=== PATIENT | male | born 1960 | race Caucasian/White ===

== ENCOUNTER 2017-11-30 22:56 | Emergency (ER) | payer OTHER ==
[~2017-11-30] VITALS: Ht 185.4 cm; Wt 95.7 kg
[~2017-11-30 22:56] MED LIST: ASPI-667 PO; CAPE500T PO; CHOL500016 PO; CLOP75TA52 PO; FENO145T PO; GEMF600T3 PO; LACT1TAB PO; MELA5TAB17 PO; METO25TA4 PO; METO50TA4 PO; SERT50TA PO
[2017-11-30 23:05] VITALS: BP 133/66
--- NOTE | 2017-11-30 23:25 | ER.PDOC ---
General Chief Complaint: General Complaint Stated Complaint: URINARY RETENTION Time seen by MD: 23:21 Source: patient Exam Limitations: no limitations History of Present Illness Initial Comments Sanchez catheter not draining. No able to pass urine in urine bag for about 8 hours. Severity/Quality: moderate Associated Symptoms: Retention Sexual History: Non-contributory Allergies: Coded Allergies: No Known Allergies (Unverified , 11/13/16) Home Meds Reported Medications Metoprolol Tartrate 25MG (LOPRESSER 25MG) 25 Mg Tablet, 1 TAB PO BID, #180 TAB 1 Refill 11/21/17 Melatonin (MELATONIN) 5 Mg Tablet, 2 TAB PO HS, #30 TAB 11/21/17 Cholecalciferol (Vitamin D3) (VITAMIN D3) 5,000 Unit Tablet, 1 TAB PO DAILY, # 30 TAB 11/21/17 Sertraline Hcl (ZOLOFT) 50 Mg Tablet, 1 TAB PO DAILY, #30 TAB 2 Refills 11/21/17 Lactobacillus Acidophilus (Acidophilus) 1 Each Tablet, 1 EACH PO BID, TABLET 11/21/17 Gemfibrozil (GEMFIBROZIL) 600 Mg Tablet, 300 MG PO BID, TABLET 600MG TAKE 1/2 TAB 11/21/17 Capecitabine (XELODA) 500 Mg Tablet, 500 MG PO BID, #3 TABLET 11/21/17 Metoprolol Succinate (TOPROL XL) 50 Mg Tab.er.24h, 1 TAB PO DAILY, #30 TAB 4 Refills 11/16/16 Fenofibrate Nanocrystallized (TRICOR) 145 Mg Tablet, 1 TAB PO DAILY, #30 TAB 4 Refills 11/16/16 Clopidogrel Bisulfate (PLAVIX) 75 Mg Tablet, 1 TAB PO DAILY, #30 TAB 4 Refills 11/16/16 Aspirin (ASPIRIN) 81 Mg Tab.chew, 1 TAB PO DAILY, #30 TAB 4 Refills 11/16/16 Past Medical History Medical History: cancer, coronary artery disease, cardiac problems Surgical History: cardiac cath, colectomy Social History Smoking: greater than 1 pack/day Alcohol Use: none Drug Use: none Review of Systems Constitutional: no symptoms reported EENTM: no symptoms reported Respiratory: no symptoms reported Cardiovascular: no symptoms reported Gastrointestinal: no symptoms reported Genitourinary: see HPI All Other Systems: Reviewed and Negative Physical Exam General Appearance: No Apparent Distress, WD/WN Neck: nml inspection, non-tender Cardiovascular/Respiratory: Regular Rate, Rhythm, No M/R/G, Normal Peripheral Pulses, No JVD, Normal Breath Sounds, No Respiratory Distress Abdomen: Normal Bowel Sounds, Soft, No Organomegaly, No Pulsatile Mass, Tenderness (mild suprapubic discomfort) Back: nml inspection Extremities: Normal Range of Motion, Non-Tender, Normal Inspection, No Pedal Edema, No Calf Tenderness, Normal Capillary Refill Neurologic/Psychiatric: delivery agent II-XII NML as Tested, No Motor/Sensory Deficits, Alert, Normal Mood/Affect, Oriented x 3 Skin: Normal Color, Warm/Dry Lymphatic: No Adenopathy Progress Progress Sanchez catheter changed and urine draining nicely. Departure Time of Disposition: 23:24 Disposition: 01 HOME, SELF-CARE Impression: Primary Impression: Urine retention Condition: Improved Referrals: PCP,UNKNOWN (PCP) PRIMARY CARE PROVIDER Additional Instructions: F/U with Urologist next week as scheduled. Duration or Time Spent with Pa: 30 mins LUCIA LAUREANO MD Nov 30, 2017 23:25
[2017-11-30 23:45] VITALS: BP 133/66
== END 2017-11-30 23:35 | disposition home or self-care (01) ==
LOC: ER 22:56
DX: R33.9 Retention of urine, unspecified (principal); I25.10 Atherosclerotic heart disease of native coronary artery without angina pectoris; F17.210 Nicotine dependence, cigarettes, uncomplicated; Z79.82 Long term (current) use of aspirin; Z85.9 Personal history of malignant neoplasm, unspecified; Z95.818 Presence of other cardiac implants and grafts
CPT/HCPCS: 51702; 99284

== ENCOUNTER 2017-12-30 15:38 | Emergency (ER) | payer OTHER ==
[~2017-12-30] VITALS: Ht 185.4 cm; Wt 88.9 kg
[2017-12-30 16:14] VITALS: BP 144/70
--- NOTE | 2017-12-30 16:54 | ER.PDOC ---
General Chief Complaint: Male Stated Complaint: MALE , JIMENEZ PLACEMENT Time seen by MD: 18:00 Source: patient Exam Limitations: no limitations History of Present Illness Timing/Duration: just prior to arrival Severity/Quality: mild Location: suprapubic Associated Symptoms: Dysuria Sexual History: Non-contributory Prior symptoms/Treatment: Similar symptoms previous Allergies: Coded Allergies: No Known Allergies (Unverified , 11/13/16) Home Meds Reported Medications Metoprolol Tartrate 25MG (LOPRESSER 25MG) 25 Mg Tablet, 1 TAB PO BID, #180 TAB 1 Refill 11/21/17 Melatonin (MELATONIN) 5 Mg Tablet, 2 TAB PO HS, #30 TAB 11/21/17 Cholecalciferol (Vitamin D3) (VITAMIN D3) 5,000 Unit Tablet, 1 TAB PO DAILY, # 30 TAB 11/21/17 Sertraline Hcl (ZOLOFT) 50 Mg Tablet, 1 TAB PO DAILY, #30 TAB 2 Refills 11/21/17 Lactobacillus Acidophilus (Acidophilus) 1 Each Tablet, 1 EACH PO BID, TABLET 11/21/17 Gemfibrozil (GEMFIBROZIL) 600 Mg Tablet, 300 MG PO BID, TABLET 600MG TAKE 1/2 TAB 11/21/17 Capecitabine (XELODA) 500 Mg Tablet, 500 MG PO BID, #3 TABLET 11/21/17 Metoprolol Succinate (TOPROL XL) 50 Mg Tab.er.24h, 1 TAB PO DAILY, #30 TAB 4 Refills 11/16/16 Fenofibrate Nanocrystallized (TRICOR) 145 Mg Tablet, 1 TAB PO DAILY, #30 TAB 4 Refills 11/16/16 Clopidogrel Bisulfate (PLAVIX) 75 Mg Tablet, 1 TAB PO DAILY, #30 TAB 4 Refills 11/16/16 Aspirin (ASPIRIN) 81 Mg Tab.chew, 1 TAB PO DAILY, #30 TAB 4 Refills 11/16/16 Past Medical History Medical History: cancer, cardiac problems, heart attack Surgical History: cancer surgery, stent Social History Smoking: cigarettes, greater than 1 pack/day Alcohol Use: none Drug Use: none Reviewed Nursing Reviewed: Vital Signs, Abn. Noted Review of Systems All Other Systems: Reviewed and Negative Physical Exam General Appearance: No Apparent Distress, WD/WN EENT: eyes nml inspection, nml ENT inspection, pharynx nml Neck: nml inspection, non-tender Cardiovascular/Respiratory: Regular Rate, Rhythm, No M/R/G, Normal Peripheral Pulses, No JVD, Normal Breath Sounds, No Respiratory Distress Abdomen: Normal Bowel Sounds, Non Tender, Soft, No Organomegaly, No Pulsatile Mass Male Genitals: Normal Genitalia Back: nml inspection Extremities: Normal Range of Motion, Non-Tender, Normal Inspection, No Pedal Edema, No Calf Tenderness, Normal Capillary Refill Neurologic/Psychiatric: 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
--- NOTE | 2017-12-30 17:17 | NUR ---
[facility] CALLED PATIENT HOME [facility] FOR CATHETER SIZE.
--- NOTE | 2017-12-30 17:23 | NUR ---
[facility] STATES THAT PATIENT IS OUT OF THE [facility] OFFICE AND WILL CONTACT THEM PROMPTLY ABOUT CATHETER SIZE.
[2017-12-30 17:50] VITALS: BP 138/84
[2017-12-30 17:55] VITALS: BP 144/70
== END 2017-12-30 17:55 | disposition home or self-care (01) ==
LOC: ER 15:38
DX: R33.9 Retention of urine, unspecified (principal); F17.210 Nicotine dependence, cigarettes, uncomplicated; I25.2 Old myocardial infarction; Z85.9 Personal history of malignant neoplasm, unspecified; Z79.82 Long term (current) use of aspirin; Z79.899 Other long term (current) drug therapy
CPT/HCPCS: 51702; 99284